=== PATIENT | female | born 1980 | race Caucasian/White ===

== ENCOUNTER 2017-12-28 15:41 | Emergency (ER) | payer OTHER ==
[~2017-12-28] VITALS: Ht 175.3 cm; Wt 104.3 kg
[2017-12-28] MEDS ORDERED: CYMBALTA20 MG PO (15:58)
[2017-12-28] MEDS ORDERED: SINGULAIR 10 MG10 M1 PO (15:58)
[2017-12-28] MEDS ORDERED: [UNRECOGNIZED DRUG - OTHER] (15:58)
[2017-12-28] MEDS ORDERED: LYRICA 50 MG50 MG PO (15:58)
[2017-12-28] MEDS ORDERED: FOLIC ACID1 MG PO (15:58)
[2017-12-28] MEDS ORDERED: OMEPRAZOLE 20 M20 M1 PO (15:58)
[2017-12-28] MEDS ORDERED: ZONEGRAN 25 MG25 M1 PO (15:58)
[2017-12-28] MEDS ORDERED: CRESTOR5 MG PO (15:59)
[2017-12-28] MEDS ORDERED: FLOMAX0.4 MG PO (15:59)
[2017-12-28] MEDS ORDERED: ONDANSETRON HCL4 M2 PO (15:59)
[2017-12-28] MEDS ORDERED: LINZESS72 MCG PO (15:59)
[2017-12-28] MEDS ORDERED: PROVIGIL 200 M200 M1 PO (16:01)
[2017-12-28 17:26] LABS: URINE BILIRUBIN NEGATIVE (Negative); URINE BLOOD 3+ (Negative); URINE CLARITY CLEAR; URINE COLOR YELLOW; URINE GLUCOSE-RANDOM NEGATIVE (Negative); URINE KETONES NEGATIVE (Negative); URINE LEUKOCYTES-REFLEX NEGATIVE (Negative); URINE NITRITE-REFLEX NEGATIVE (Negative); URINE PROTEIN NEGATIVE (Negative); URINE UROBILINOGEN 0.2 E.U./dl (0.2-1.0)
[2017-12-28 17:42] LABS: BACTERIA-REFLEX 1-9 Few /HPF (None Seen); CASTS None Seen /LPF (None Seen); CRYSTALS None Seen /LPF (None Seen); MUCUS None Seen strn/LPF (None Seen); SQUAMOUS 4-10 Moderate /LPF (0-3); URINE WBC-REFLEX 0-5 Rare /HPF (0-5)
[2017-12-28] MEDS ORDERED: DETROL2 MG PO (18:04)
[2017-12-28] MEDS ORDERED: TORADOL 10 MG T10 MG PO (18:04)
[2017-12-28 18:32] VITALS: BP 101/68
== END 2017-12-28 18:33 | disposition home or self-care (01) ==
LOC: M.ERS 15:41
PROVIDERS: Nurse Practitioner Family
DX: N32.89 Other specified disorders of bladder (principal); M79.7 Fibromyalgia; I10 Essential (primary) hypertension; E78.00 Pure hypercholesterolemia, unspecified; Z88.0 Allergy status to penicillin; Z88.1 Allergy status to other antibiotic agents; Z88.8 Allergy status to other drugs, medicaments and biological substances

== ENCOUNTER 2017-12-29 11:05 | Inpatient (IN) | payer OTHER ==
[~2017-12-29] VITALS: Ht 175.3 cm; Wt 108.9 kg
--- NOTE | ~2017-12-29 | OP ---
[facility] [address] [place] [address] OPERATIVE REPORT Name: MALENA CARSON Room: [address] IN M.R.#: [id number] Admission: 12/29/17 Attend Phys: Denny Nevarez MD Discharge: Date of : 84 Report #: [id number] THIS REPORT FOR: //name// CC: Delgado Oakley DATE OF SERVICE: 12/30/2017 PREOPERATIVE DIAGNOSIS: Right ureteral steinstrasse. POSTOPERATIVE DIAGNOSIS: Right ureteral steinstrasse. PROCEDURES PERFORMED: 1. Cystoscopy with right retrograde pyelogram. 2. Right ureteroscopy with laser lithotripsy. 3. Basket stone extraction. 4. Right 4.8 x 28 double-J ureteral stent placement. SURGEON: Jesus Ring M.D. ANESTHESIA: Laryngeal mask airway. BRIEF HISTORY: The patient is a 37-year-old female who is status post right shock wave lithotripsy by my partner, Dr. Santos, on Tuesday. The patient developed right-sided flank pain postoperatively and CT imaging demonstrated the presence of several right ureteral calculus fragments. After discussion of the available management options, the patient elected ureteroscopy with laser lithotripsy, stone retrieval and stent placement. The risks of the procedure including the risks of bleeding, infection, damage to surrounding structures, need for additional procedures and anesthetic risks were discussed with the patient and she wished to proceed. PROCEDURE IN DETAIL: The risks and benefits of surgery were discussed with the patient and she wished to proceed. Informed consent was obtained and the patient was transferred to the operating room, where she was laid supine on the operating room table. After the induction of adequate general endotracheal anesthesia and the administration of appropriate preoperative antibiotics, the patient's legs were placed in a modified dorsal lithotomy position, taking care to pad all pressure points and avoid any hyperextension or hyperflexion of her joints. The patient's genitalia were prepped and draped in the usual sterile fashion. A timeout was then performed to ensure correct patient and procedure. At this time, a 21-Yemeni cystoscope sheath with a 30-degree lens was lubricated and advanced under direct vision and irrigation through [place] [address] OPERATIVE REPORT Name: MALENA CARSON Room: [address]#: [id number] Admission: 12/29/17 Attend Phys: Denny Nevarez MD Discharge: Date of : 84 Report #: [id number] bladder. The cystoscope was disarticulated and the bladder was drained. Cystoscopy was performed under direct vision and irrigation and revealed her ureteral orifices to be in their normal anatomic location. Systematic panendoscopy revealed no gross bladder wall pathology. There were no papillary bladder tumors or suspicious mucosal lesions identified. At this time, a 5-Yemeni Pollack catheter was placed into the patient's right ureteral orifice and a right retrograde pyelogram was performed. Contrast could be seen filling the distal ureter, a distance of approximately 1-2 cm, at which point, there were several faint radiopaque filling defects, consistent with the distal calculi previously observed on CT imaging. Contrast progressed beyond the stones and filled a moderately ectatic mid and proximal ureter. Contrast opacified 2 proximal ureteral stone fragments as well. At this time, a 0.038 ZIPwire was advanced through the lumen of the Pollack catheter and beyond the calculi until it was seen to coil within the right collecting system under fluoroscopy. The Pollack catheter and cystoscope were removed, leaving the wire in place as a safety wire. A rigid ureteroscope was then advanced under direct vision and pressure flow irrigation into the right distal ureter without difficulty. There were several stone fragments identified within the distal ureter. A 200-micron laser fiber was advanced through the ureteroscope and laser lithotripsy was performed on these stones, breaking them down to a size amenable for basket extraction. A 0 tip nitinol basket was used to grab and remove these fragments. The ureteroscope was then advanced just beyond the iliacs and was withdrawn. There were no additional basketable stone fragments identified. Before withdrawing the ureteroscope entirely, a second wire was advanced into the ureter and up into the kidney under fluoroscopic guidance. This wire was left in place as a working wire and the ureteroscope was removed. At this time, an 01/31 navigator ureteral access sheath was obtained and the inner cannula of the access sheath was advanced over the wire by itself under fluoroscopic guidance. The inner cannula would not advance beyond the distal ureter as significant resistance was met. Given the above, the decision was made to abort access sheath placement and to attempt flexible ureteroscopy only. Flexible ureteroscope was obtained and was advanced over the working wire, without difficulty up the ureter under direct and radiographic vision to the proximal ureter. The patient's 2 proximal ureteral stone fragments had moved in a retrograde fashion back into the right renal pelvis. The largest of the fragments was able to be manipulated to the upper pole, where laser lithotripsy was performed on the stone, fragmenting it into multiple smaller pieces. The popcorn technique was utilized to generate dust and very fine debris, which would be able to pass with stent drainage only. Finally, the second stone fragment was identified, having dropped into the lower pole of the kidney. This was also broken down into sand and very fine debris, utilizing the popcorn technique with the laser. Each of the patient's calices was then meticulously inspected and there were no remaining large stone fragments. The ureteroscope [address] [address] OPERATIVE REPORT Name: MALENA CARSON Room: [address] [place] M.R.#: [id number] Admission: 12/29/17 Attend Phys: Denny Nevarez MD Discharge: Date of : 84 Report #: [id number] was withdrawn, the length of the ureter from the UPJ towards the UVJ. There were no basketable stone fragments remaining within the ureter. Prior to withdrawing the ureteroscope entirely, a retrograde pyelogram was performed, which demonstrated patency and integrity of the ureter and collecting system and delineated the collecting system for stent placement. The ureteroscope was withdrawn and a 4.8 x 28 double-J ureteral stent was advanced over the safety wire and into position. The wire was withdrawn, deploying the stent. A good coil of the stent was identified within the right renal pelvis under fluoroscopy and a good coil of the stent was identified within the bladder under direct vision with the cystoscope. The stone fragments which had been dropped in the bladder were evacuated out and passed off the table for pathologic analysis. The patient's urethra was anesthetized with 2% lidocaine jelly and a B and O suppository was placed per rectum. The patient was then returned to a supine position, awakened from anesthesia and transferred to the Postoperative Care Unit in stable condition. The patient tolerated the procedure well. COMPLICATIONS: None. ESTIMATED BLOOD LOSS: Minimal. INTRAVENOUS FLUIDS: Crystalloid. DRAINS: Right 4.8 x 28 double-J ureteral stent. SPECIMENS: Right ureteral calculus fragments. FINDINGS: 1. No gross bladder wall pathology. No papillary bladder tumors or suspicious mucosal lesions identified. 2. Right retrograde pyelogram demonstrating right distal and proximal ureteral calculus fragments, consistent with CT imaging. 3. Right ureteroscopy demonstrating a right distal ureteral calculus fragments, fragmented with laser lithotripsy and removed. 4. Right ureteroscopy demonstrating 2 right proximal ureteral calculi, fragmented utilizing popcorn technique. 5. Right 4.8 x 28 double-J ureteral stent in good position by fluoroscopy and direct vision at the conclusion of the procedure. By: [id number] 135Leighton Ring MD /nt
[~2017-12-29 11:05] MED LIST: CRESTOR5 MG PO; CYMBALTA20 MG PO; DETROL2 MG PO; FLOMAX0.4 MG PO; FOLIC ACID1 MG PO; LINZESS72 MCG PO; LYRICA 50 MG50 MG PO; OMEPRAZOLE 20 M20 M1 PO; ONDANSETRON HCL4 M2 PO; PROVIGIL 200 M200 M1 PO; SINGULAIR 10 MG10 M1 PO; TORADOL 10 MG T10 MG PO; ZONEGRAN 25 MG25 M1 PO; [UNRECOGNIZED DRUG - OTHER]
[2017-12-29 11:20] VITALS: BP 165/98
[2017-12-29 11:26] LABS: URINE BILIRUBIN NEGATIVE (Negative); URINE BLOOD 2+ (Negative); URINE CLARITY CLEAR; URINE COLOR YELLOW; URINE GLUCOSE-RANDOM NEGATIVE (Negative); URINE KETONES NEGATIVE (Negative); URINE LEUKOCYTES-REFLEX NEGATIVE (Negative); URINE NITRITE-REFLEX NEGATIVE (Negative); URINE PROTEIN NEGATIVE (Negative); URINE SPECIFIC GRAVITY 1.015 (1.005-1.030); URINE UROBILINOGEN 0.2 E.U./dl (0.2-1.0)
[2017-12-29 11:32] LABS: BACTERIA-REFLEX 1-9 Few /HPF (None Seen); MUCUS None Seen strn/LPF (None Seen); SQUAMOUS 4-10 Moderate /LPF (0-3); URINE RBC 3-10 Few /HPF (0-2); URINE WBC-REFLEX 0-5 Rare /HPF (0-5)
[2017-12-29 11:33] LABS: CASTS None Seen /LPF (None Seen); CRYSTALS None Seen /LPF (None Seen)
[2017-12-29 11:37] LABS: ABSOLUTE BASOPHILS 0.1 thou/uL (0.0-0.2); ABSOLUTE EOSINOPHILS 0.1 thou/uL (0.0-0.7); ABSOLUTE LYMPHOCYTES 1.4 thou/uL (0.8-5.3); ABSOLUTE MONOCYTES 0.6 thou/uL (0.0-1.2); ABSOLUTE NEUTROPHILS 10.2 thou/uL (1.6-8.1); BASOPHILS 0.7 %; EOSINOPHILS 0.5 %; HEMATOCRIT 44.5 % (37.0-47.0); LYMPHOCYTES 11.5 %; MCH 28.9 pg (26.0-34.0); MCHC 33.7 g/dL (28.0-37.0); MCV 85.7 fL (80.0-100.0); MPV 9.2 fl. (7.2-11.1); NUCLEATED RBCS 0 /100WBC; PLATELET COUNT* 280 thou/uL (150-400); POLYS 82.3 %; RDW-CV 12.6 % (10.5-14.5); WBC 12.4 thou/uL (4.0-11.0)
--- NOTE | 2017-12-29 11:43 | NUR ---
TRUDY NOTIFIED UPON PT RETURN FROM CT. PT WAS NOT CONNECTED TO MONITOR SHE WAS NOT CONNECTED PRIOR TO GOING TO CT.
[2017-12-29 11:45] LABS: CALCIUM 8.9 mg/dL (8.5-10.1); CREATININE 1.1 mg/dL (0.6-1.3); POTASSIUM 3.6 mmol/L (3.5-5.1)
[2017-12-29 11:50] LABS: ALBUMIN 3.9 g/dL (3.4-5.0); TOTAL BILIRUBIN 0.3 mg/dL (<0.1-1.0); TOTAL PROTEIN 8.3 g/dL (6.4-8.2)
[2017-12-29 14:20] LABS: AMP/METHAMP Negative (Negative); BARBITURATES Negative (Negative); BENZODIAZEPINES Negative (Negative); COCAINE Negative (Negative); METHADONE Negative (Negative); OPIATES POSITIVE (Negative); PCP Negative (Negative); THC Negative (Negative)
[2017-12-29 14:50] VITALS: BP 134/83
[2017-12-29 16:00] VITALS: BP 143/94
--- NOTE | 2017-12-29 17:01 | NUR ---
PATIENT ARRIVED FROM ER THIS AFTERNOON. PATIENT SETTLED TO ROOM AND HISTORY, ASSESSMENT AND VITALS COMPLETED AND DOCUMENTED. PATIENT HAS HAD COMPLAINTS OF ABDOMINAL PAIN TREATED PARTIALLY WITH MEDICATION. THREE STONES PASSED THIS EVENING. PATIENT SLEEPING AT THIS TIME. CALL LIGHT WITHIN REACH. WILL CONTINUE TO MONITOR.
[2017-12-29 20:15] VITALS: BP 145/94
[2017-12-30 04:38] LABS: ABSOLUTE BASOPHILS 0.1 thou/uL (0.0-0.2); ABSOLUTE EOSINOPHILS 0.1 thou/uL (0.0-0.7); ABSOLUTE LYMPHOCYTES 2.6 thou/uL (0.8-5.3); ABSOLUTE NEUTROPHILS 7.6 thou/uL (1.6-8.1); BASOPHILS 0.5 %; EOSINOPHILS 1.3 %; HEMATOCRIT 40.2 % (37.0-47.0); HEMOGLOBIN 13.5 gm/dL (12.0-15.0); LYMPHOCYTES 23.1 %; MCHC 33.6 g/dL (28.0-37.0); MCV 86.3 fL (80.0-100.0); MONOCYTES 8.4 %; MPV 9.5 fl. (7.2-11.1); NUCLEATED RBCS 0 /100WBC; PLATELET COUNT* 249 thou/uL (150-400); POLYS 66.7 %; RBC 4.66 mil/uL (4.20-5.00); RDW-CV 12.6 % (10.5-14.5); WBC 11.4 thou/uL (4.0-11.0)
[2017-12-30 05:03] LABS: CALCIUM 8.2 mg/dL (8.5-10.1); CREATININE 1.2 mg/dL (0.6-1.3); POTASSIUM 3.8 mmol/L (3.5-5.1)
--- NOTE | 2017-12-30 05:22 | NUR ---
PATIENT IS ALERT AND ORIENTED AND ORIENTED TONIGHT, SLEPT MOST OF THE NIGHT. HAD SOME COMPLAINTS OF PAIN AT THE BEGINNING OF THE SHIFT THAT WAS CONTROLLED WITH IV PAIN MEDICATIONS, CALL LIGHT IS IN REACH WILL CONTINUE TO MONITOR.
[2017-12-30 08:00] VITALS: BP 138/93; BP 145/94
[2017-12-30 10:25] VITALS: BP 145/94
--- NOTE | 2017-12-30 14:56 | NUR ---
Pt out of room today for surgery. Pt lives with significant other and also has a sister who is another contact. SW to continue to follow to assist with safe dc planning.
--- NOTE | 2017-12-30 16:06 | NUR ---
RETURNED FROM PACU @ 1420 IN STABLE CONDITION, CAPNOGRAPHY IN PLACE, O X 4, DENIES PAIN, DID VOID W/ HEMATURIA PRESENT. JANAE PROCEDURE WELL, FAMILY AT BEDSIDE, CALL LIGHT IN REACH, JANAE DIET WELL, UP W/ STANDBY, CONT POC.
[2017-12-30 17:20] VITALS: BP 148/97
[2017-12-31] VITALS: BP 114/56
[2017-12-31 04:00] VITALS: BP 131/71
[2017-12-31 04:52] LABS: ABSOLUTE BASOPHILS 0.1 thou/uL (0.0-0.2); ABSOLUTE LYMPHOCYTES 2.3 thou/uL (0.8-5.3); ABSOLUTE MONOCYTES 0.7 thou/uL (0.0-1.2); ABSOLUTE NEUTROPHILS 10.3 thou/uL (1.6-8.1); BASOPHILS 0.5 %; EOSINOPHILS 0.1 %; HEMATOCRIT 39.1 % (37.0-47.0); HEMOGLOBIN 13.2 gm/dL (12.0-15.0); LYMPHOCYTES 17.1 %; MCH 29.2 pg (26.0-34.0); MCHC 33.7 g/dL (28.0-37.0); MCV 86.7 fL (80.0-100.0); MONOCYTES 5.6 %; MPV 9.7 fl. (7.2-11.1); NUCLEATED RBCS 0 /100WBC; PLATELET COUNT* 279 thou/uL (150-400); POLYS 76.7 %; RBC 4.51 mil/uL (4.20-5.00); RDW-CV 12.8 % (10.5-14.5); WBC 13.4 thou/uL (4.0-11.0)
[2017-12-31 05:13] LABS: CALCIUM 8.8 mg/dL (8.5-10.1); CREATININE 0.9 mg/dL (0.6-1.3); POTASSIUM 3.3 mmol/L (3.5-5.1)
--- NOTE | 2017-12-31 05:41 | NUR ---
PATIENT SLEPT WELL DURING THIS SHIFT. PT DID NOT FEEL PYRIDIUM WORKED FOR HER AND ASKED FOR OPIUM/BELLADONA SUPPOSITORY FOR BLADDER SPASMS. SUPPOSITORY GIVEN. LATER DURING THE SHIFT PT SAID SHE FELT THE SUPPOSITORY WAS EFFECTIVE THAT SHE FELT THE SAME PAIN WHILE VOIDING. PT VOIDS DARK PINK URINE. NO STONES NOTED AFTER BEING STRAINED. PT WITH O2 @ 2 LITERS AND CAPNO ON. PT SAID CAPNO WOULD ALARM BUT SHE WOULD HIT THE SILENCE BUTTON. PT EDUCATED ON IMPORTANCE OF STAFF HEARING THE CAPNO ALARMING. PT WITH FLUIDS INFUSING PER DR ORDER. PT IS UP AD HAYLEE TO BATHROOM. PT DENIES NEEDS AT THIS TIME. FREQUENTLY USED ITEMS AND CALL LIGHT WITHIN REACH. SIDERAILS UPX2. WILL CONTINUE TO MONITOR.
[2017-12-31 08:00] VITALS: BP 126/78
[2017-12-31] MEDS ORDERED: PHENAZOPYRIDIN200 M2 PO (09:00)
[2017-12-31] MEDS ORDERED: LEVSIN0.125 MG SUBLING (09:00)
[2017-12-31] MEDS ORDERED: KETOROLAC TROME10 MG PO (10:29)
[2017-12-31 10:34] VITALS: BP 131/71
--- NOTE | 2017-12-31 11:44 | NUR ---
RESUMED CARE THIS AM, A/O, NO DISTRESS NOTED, UP AD HAYLEE W/ STEADY GAIT, INDEPENDENT WITH ADL, EAGER FOR DISCHARGE. ORDERS RECEIVED, IV ACCESS REMOVED WITHOUT INCIDENT. PRESCRIPTIONS, F/U APPTS, DISCHARGE INSTRUCTIONS DISCUSSED WITH AND GIVEN TO PATIENT, DENIES QUESTIONS AT THIS TIME. PERSONAL EFFECTS GATHERED, ACCOUNTED FOR, IN COMPANY OF PATIENT, ALONG WITH HOME MEDICATION. AMBULATED TO MAIN ENTRANCE IN COMPANY OF NURSING STAFF IN STABLE CONDTION.
[2018-01-10 16:11] LABS: STONE CA OXALATE DIHYDRATE 10 % (()); STONE CA OXALATE MONOHYDRATE 35 % (()); STONE CALCIUM PHOSPHATE 55 % (()); STONE COLOR Brown (()); STONE COMMENT Note: (()); STONE WEIGHT 14.3 mg (())
--- NOTE | 2018-01-13 16:08 | CON ---
[address] [address] CONSULTATION Name: MALENA CARSON Room: [address] IN M.R.#: [id number] Admission: 12/29/17 Attend Phys: Denny Nevarez MD Discharge: 12/31/17 Date of : 84 Report #: [id number] THIS REPORT FOR: //name// CC: Delgadoesmer Oakley DATE OF SERVICE: 12/29/2017 Urology Consultation REFERRING PHYSICIAN: Denny Nevarez MD REASON FOR CONSULTATION: Right ureteral calculi, flank pain, and subcapsular renal hematoma. HISTORY OF PRESENT ILLNESS: This is a 37-year-old female who underwent shockwave lithotripsy on Tuesday due to a 12-13 mm right renal calculus. She reports she did well initially, but started having trouble the following day with right flank pain radiating to the right lower quadrant and bladder, frequency, urgency, stranguria, nausea, and vomiting. She denies fever or chills. She has passed a few fragments and had intermittent gross hematuria. She presented to the emergency department and was admitted for pain control and further management. Urology was consulted. PAST MEDICAL HISTORY: As above. She also reports a history of interstitial cystitis, fibromyalgia, seizure disorder, hypertension, and hypercholesterolemia. PAST SURGICAL HISTORY: As above. Also has a history of tubal ligation. FAMILY HISTORY: She does not know of any family history of kidney disease. SOCIAL HISTORY: She drinks alcohol occasionally. Denies tobacco. ALLERGIES: Include PENICILLINS, ZYVOX, and LEVAQUIN. MEDICATIONS: List is reviewed. She has been started on Flomax. REVIEW OF SYSTEMS: As per the history of present illness. She denies chest pain, shortness of breath, cough or palpitations. Denies dizziness. PHYSICAL EXAMINATION: VITAL SIGNS: Temperature is 36.8, pulse 104, respirations 17, blood pressure 143/94. [place] [address] CONSULTATION Name: MALENA CARSON Room: [address] IN [facility].#: [id number] Admission: 12/29/17 Attend Phys: Denny Nevarez MD Discharge: 12/31/17 Date of : 84 Report #: [id number] GENERAL: This is a 37-year-old female who is resting comfortably. She reports pain control has been adequate. HEENT: Normocephalic, atraumatic. Oropharynx is clear. NECK: Supple. No JVD. CARDIAC: Rhythm is regular. Radial pulses are palpable. Respiratory effort and excursion are normal. ABDOMEN: Soft and nondistended. She is tender in the right upper quadrant, right lower quadrant, and right flank with no guarding or rebound. Bladder is nonpalpable. Left side is nontender. A 15 mm ecchymosis is noted at the lithotripsy site. EXTREMITIES: Warm. Moves all extremities well. No peripheral edema. LABORATORY STUDIES: Include creatinine of 1.1, hemoglobin 15.0, white count 12.4, platelet count 280,000. Urinalysis reveals 3-10 red cells and 0-5 white cells. Urine culture has been ordered. A few bacteria were noted on the UA. Noncontrast CT scan of the abdomen and pelvis reveals a small right subcapsular renal hematoma, as well as multiple right renal and ureteral fragments including ureteral fragments measuring up to 7 mm with some associated hydronephrosis. Her urine is being strained and she has passed a few small fragments. Findings and options for management were discussed with the patient. IMPRESSION: Status post shockwave lithotripsy for right renal calculus 3 days ago, now admitted with intractable flank pain and multiple renal/ureteral fragments with hydronephrosis, as well as a subcapsular renal hematoma. Flomax has been started. Cultures ordered. We will defer antibiotic therapy depending on those results. Her urine is being strained. We will keep her n.p.o. after midnight in case intervention is indicated tomorrow. Stop Toradol due to the small hematoma. We discussed potential management options including inpatient versus outpatient medical expulsive therapy, cystoscopy with right retrograde pyelogram, stent placement, and possible ureteroscopy with stone manipulation. Pros and cons of these approaches were discussed and she voices understanding. We will check a KUB in the morning as well. <ELECTRONICALLY SIGNED> By: Norman Ruffin MD 01/13/18 [id number] Ruffin MD /nt
== END 2017-12-31 11:52 | disposition home or self-care (01) | DRG 661 ==
LOC: M.ERS 11:05 → M.3W 13:49 → M.TBA-ER 13:49 → M.3W 14:54
PROVIDERS: Physician Assistant; ADMIT Internal Medicine
DX: N13.2 Hydronephrosis with renal and ureteral calculous obstruction (principal); M79.7 Fibromyalgia; I10 Essential (primary) hypertension; G40.909 Epilepsy, unspecified, not intractable, without status epilepticus; E86.0 Dehydration; R00.0 Tachycardia, unspecified; E78.00 Pure hypercholesterolemia, unspecified; Z79.899 Other long term (current) drug therapy; Z88.0 Allergy status to penicillin; Z88.1 Allergy status to other antibiotic agents; Z88.8 Allergy status to other drugs, medicaments and biological substances

== ENCOUNTER 2019-11-19 15:54 | Emergency (ER) | payer OTHER ==
[~2019-11-19] VITALS: Ht 172.7 cm; Wt 108.9 kg
[~2019-11-19 15:54] MED LIST changes: +KETOROLAC TROME10 MG PO; +LEVSIN0.125 MG SUBLING; +MOBIC15 MG PO; +PHENAZOPYRIDIN200 M2 PO; +VYVANSE20 MG PO
[2019-11-19] MEDS ORDERED: NORCO 5-325 TA1 EAC2 PO (16:41)
[2019-11-19 17:04] VITALS: BP 112/74
== END 2019-11-19 17:05 | disposition home or self-care (01) ==
LOC: M.ERS 15:54
DX: S80.01XA Contusion of right knee, initial encounter (principal); I10 Essential (primary) hypertension; E78.00 Pure hypercholesterolemia, unspecified; M79.7 Fibromyalgia; Z98.51 Tubal ligation status; Z91.040 Latex allergy status; Z88.0 Allergy status to penicillin; Z88.1 Allergy status to other antibiotic agents; Z88.8 Allergy status to other drugs, medicaments and biological substances; W17.1XXA Fall into storm drain or manhole, initial encounter; Y93.89 Activity, other specified; Y92.89 Other specified places as the place of occurrence of the external cause; Y99.8 Other external cause status